=== PATIENT | female | born 2000 | race Two or more races ===

== ENCOUNTER 2024-10-30 13:36 | Emergency (ER) | payer OTHER ==
[~2024-10-30] VITALS: Ht 149.9 cm; Wt 39.5 kg
== END 2024-10-30 21:55 | disposition home or self-care (01) ==
LOC: ER 13:37
DX: O26.891 Other specified pregnancy related conditions, first trimester (principal); N89.8 Other specified noninflammatory disorders of vagina; Z3A.10 10 weeks gestation of pregnancy; Z88.0 Allergy status to penicillin

== ENCOUNTER 2024-11-07 13:24 | Emergency (ER) | payer OTHER ==
[~2024-11-07] VITALS: Ht 149.9 cm; Wt 39.5 kg
[2024-11-07 15:35] LABS: HEMATOCRIT 33.6 % (36.0-45.00); HEMOGLOBIN 11.7 g/dL (12.0-15.00); MEAN CELL VOLUME 86.8 fL (80.00-100.00); MEAN CORPUSCULAR HEMOGLOBIN 30.2 pg (27.00-32.0); MEAN CORPUSCULAR HGB CONC 34.8 g/dl (32.0-36.0); PLATELET COUNT 208 K/uL (150-450); RED BLOOD COUNT 3.87 M/uL (4.00-6.00); RED CELL DISTRIBUTION WIDTH 14.4 % (11.5-14.5)
== END 2024-11-07 18:15 ==
LOC: ER 13:25
PROVIDERS: General Practice
DX: O20.9 Hemorrhage in early pregnancy, unspecified (principal); O43.891 Other placental disorders, first trimester; Z3A.11 11 weeks gestation of pregnancy; Z88.0 Allergy status to penicillin

== ENCOUNTER 2025-02-04 20:36 | Outpatient (CLI) | payer OTHER ==
[2025-02-04 19:54] VITALS: BP 103/68
[2025-02-04] MEDS ORDERED: PRENATA CHEWAB1 EACH PO (20:40)
[2025-02-04] MEDS ORDERED: RINGERS SOLUTION,LACTATED 1,000 ML IV SCH (20:45)
[2025-02-04 21:05] LABS: BASO % 0.4 % (0.1-1.2); EOS # 0.21 (0.04-0.54); EOS % 2.1 % (0.7-7.0); LYMPH # 1.85 (1.18-3.74); LYMPH % 18.4 % (19.3-53.1); MEAN PLATELET VOLUME 9.70 fl (9.4-12.4); MONO # 1.02 (0.24-0.82); MONO % 10.1 % (4.7-12.5); NEUT # 6.84 (1.56-6.13); NEUT % 68.0 % (34.0-71.1); RED CELL DISTRIBUTION WIDTH 14.3 % (11.6-14.4); URINE APPEARANCE Turbid; URINE BILIRRUBIN Negative (NEGATIVE); URINE BLOOD Negative; URINE COLOR Yellow; URINE GLUCOSE Negative (NEGATIVE); URINE KETONE Negative (NEGATIVE); URINE LEUKOCYTE Negative; URINE NITRATE Negative; URINE PROTEIN Negative (NEGATIVE); URINE UROBILINOGEN 0.2 E.U./dl
[2025-02-04 21:09] LABS: URINE BACTERIA 68.3 uL (0.0-1933); URINE EPITHELIAL CELLS 18.2 uL (0.0-38.8); URINE RBC 32.6 uL (0.0-20.8); URINE WBC 4.2 uL (0.0-23.2)
[2025-02-04 21:18] LABS: URINE CAST 0.00 uL (0.0-1.40)
[2025-02-04 21:32] LABS: ALT/SGPT 27.0 U/L (12-78); AST/SGOT 22.0 U/L (15-37); BILIRUBIN TOTAL 0.3 mg/dL (0.3-1.2); BUN CREA RATIO 27.0 (7.0-25.0); CREATININE SERUM 0.3 mg/dL (0.55-1.02); GFR 275.68; GLOBULINA 3.7 G/DL (2.4-3.5); GLUCOSE FASTING 94.0 mg/dL (65-100); OSMOLALITY SERUM 276.0 MOSM/KG (275-295)
[2025-02-04 21:33] LABS: INR 0.94
[2025-02-04] MEDS ORDERED: CEFUROXIME500 MG (23:07)
[2025-02-04] MEDS ORDERED: ANCEF PO (23:08)
[2025-02-04 23:27] VITALS: BP 95/57; O2SAT 100
[2025-02-05 03:12] VITALS: BP 92/54; O2SAT 99
[2025-02-05 07:44] VITALS: BP 112/70; O2SAT 100
[2025-02-05 11:13] VITALS: BP 112/70
== END 2025-02-05 11:13 | disposition home or self-care (01) ==
LOC: OBS/DEL 20:36
PROVIDERS: Obstetrics & Gynecology; ATTEND Obstetrics & Gynecology
DX: O26.892 Other specified pregnancy related conditions, second trimester (principal); N93.0 Postcoital and contact bleeding; Z3A.24 24 weeks gestation of pregnancy

== ENCOUNTER 2025-02-25 22:54 | Emergency (ER) | payer OTHER ==
[~2025-02-25] VITALS: Ht 149.9 cm; Wt 46.7 kg
[~2025-02-25 22:54] MED LIST: ANCEF PO; CEFUROXIME500 MG; PRENATA CHEWAB1 EACH PO
[2025-02-26] MEDS ORDERED: GUAIFENESIN/DEXTROMETHORPHAN 100MG/10ML BLIST.PACK PO STA (01:57)
[2025-02-26 02:43] LABS: BASO % 0.4 % (0.1-1.2); EOS # 0.07 (0.04-0.54); EOS % 0.6 % (0.7-7.0); LYMPH # 0.89 (1.18-3.74); LYMPH % 7.2 % (19.3-53.1); MEAN PLATELET VOLUME 9.50 fl (9.4-12.4); MONO # 1.18 (0.24-0.82); MONO % 9.5 % (4.7-12.5); NEUT # 9.93 (1.56-6.13); NEUT % 79.8 % (34.0-71.1); RED CELL DISTRIBUTION WIDTH 13.3 % (11.6-14.4)
[2025-02-26 03:21] LABS: COVID-19 AG NEGATIVE (NEGATIVE)
== END 2025-02-26 04:01 | disposition home or self-care (01) ==
LOC: ER 22:54
DX: O98.812 Other maternal infectious and parasitic diseases complicating pregnancy, second trimester (principal); Z3A.26 26 weeks gestation of pregnancy; Z88.0 Allergy status to penicillin; Z91.040 Latex allergy status; J10.1 Influenza due to other identified influenza virus with other respiratory manifestations; Z20.822 Contact with and (suspected) exposure to COVID-19

== ENCOUNTER 2025-05-05 14:03 | Outpatient (CLI) | payer OTHER ==
[~2025-05-05] VITALS: Ht 149.9 cm; Wt 53.5 kg
[2025-05-05 13:07] VITALS: BP 102/71
[2025-05-05 14:00] VITALS: BP 102/71
[2025-05-05 15:31] VITALS: BP 105/67
[2025-05-05 19:40] VITALS: BP 107/63; O2SAT 98
[2025-05-05 23:29] VITALS: BP 108/75
[2025-05-06 00:06] VITALS: BP 108/75
== END 2025-05-05 23:29 | disposition home or self-care (01) ==
LOC: OBS/DEL 14:03
PROVIDERS: ATTEND Obstetrics & Gynecology
DX: O36.8130 Decreased fetal movements, third trimester, not applicable or unspecified (principal); O26.849 Uterine size-date discrepancy, unspecified trimester; Z3A.36 36 weeks gestation of pregnancy

== ENCOUNTER 2025-05-25 10:50 | Inpatient (IN) | payer OTHER ==
[2025-05-25] VITALS (7 sets, daily range): BP systolic 98–119; BP diastolic 56–79
[~2025-05-25] VITALS: Ht 149.9 cm; Wt 57.2 kg
[2025-05-25 12:15] LABS: BASO % 0.3 % (0.1-1.2); EOS # 0.11 (0.04-0.54); EOS % 1.2 % (0.7-7.0); LYMPH # 1.83 (1.18-3.74); LYMPH % 19.9 % (19.3-53.1); MEAN PLATELET VOLUME 10.10 fl (9.4-12.4); MONO # 1.15 (0.24-0.82); NEUT # 6.02 (1.56-6.13); NEUT % 65.6 % (34.0-71.1); RED CELL DISTRIBUTION WIDTH 13.6 % (11.6-14.4)
[2025-05-25] MEDS ORDERED: RINGERS SOLUTION,LACTATED 1,000 ML IV SCH (12:15)
[2025-05-25 12:19] LABS: MONO % 12.5 % (4.7-12.5)
[2025-05-25] MEDS ORDERED: OXYTOCIN 20 UNITS/500ML RL PIGGYBAG IV ONE (12:26)
[2025-05-25 12:29] LABS: URINE APPEARANCE Cloudy; URINE BILIRRUBIN Negative (NEGATIVE); URINE COLOR Yellow; URINE GLUCOSE Negative (NEGATIVE); URINE KETONE Negative (NEGATIVE); URINE LEUKOCYTE Small; URINE NITRATE Negative; URINE PROTEIN Negative (NEGATIVE); URINE UROBILINOGEN 0.2 E.U./dl
[2025-05-25] MEDS ORDERED: OXYTOCIN 20 UNITS/500ML RL PIGGYBAG IV SCH (12:30)
[2025-05-25 12:34] LABS: URINE BACTERIA 131.9 uL (0.0-1933); URINE EPITHELIAL CELLS 201.5 uL (0.0-38.8); URINE RBC 6.5 uL (0.0-20.8); URINE WBC 92.1 uL (0.0-23.2)
[2025-05-25 12:37] LABS: URINE CAST 0.00 uL (0.0-1.40)
[2025-05-25 12:38] LABS: URINE BLOOD TRACES
[2025-05-25 12:41] LABS: INR < 0.93
[2025-05-25] MEDS ORDERED: MORPHINE SULFATE 4 MG/ML CARTRIDGE IV STA (18:00)
[2025-05-25] MEDS ORDERED: OXYTOCIN 20 UNITS/1000ML RL PIGGYBAG IV ONE (19:10)
[2025-05-25] MEDS ORDERED: LIDOCAINE HCL 1% 10ML VIAL ONE (19:10)
[2025-05-25] MEDS ORDERED: CHLORHEXIDINE GLUCONATE 120 ML BOTTLE TOP ONE (19:10)
[2025-05-25] MEDS ORDERED: ERYTHROMYCIN BASE OPHT 1GM EACH TUBE OP ONE (19:10)
[2025-05-25] MEDS ORDERED: ACETAMINOPHEN 500 MG GEL..CAP PO PRN (23:45)
[2025-05-25] MEDS ORDERED: CHLORHEXIDINE GLUCONATE 120 ML BOTTLE TP ONE (23:45)
[2025-05-25] MEDS ORDERED: OXYTOCIN 1,000 ML IV SCH (23:45)
[2025-05-26 01:30] VITALS: BP 107/68
[2025-05-26 03:37] LABS: BASO % 0.2 % (0.1-1.2); EOS # 0.01 (0.04-0.54); EOS % 0.1 % (0.7-7.0); LYMPH # 1.30 (1.18-3.74); LYMPH % 7.5 % (19.3-53.1); MEAN PLATELET VOLUME 10.00 fl (9.4-12.4); MONO # 1.43 (0.24-0.82); MONO % 8.2 % (4.7-12.5); NEUT # 14.51 (1.56-6.13); NEUT % 83.3 % (34.0-71.1); RED CELL DISTRIBUTION WIDTH 13.4 % (11.6-14.4)
[2025-05-26 08:00] VITALS: BP 112/77
[2025-05-26] MEDS ORDERED: PNV,CALCIUM 72/IRON/FOLIC ACID 1 TAB TABLET PO SCH (09:00)
[2025-05-26 16:01] VITALS: BP 108/72
[2025-05-27] VITALS: BP 107/68
[2025-05-27 09:34] VITALS: BP 99/65
== END 2025-05-27 18:09 | disposition home or self-care (01) | DRG 807 ==
LOC: LDR 10:50 → OB/GYN 10:50 → LDR 14:17 → OB/GYN 23:06
PROVIDERS: ADMIT Obstetrics & Gynecology; ATTEND Obstetrics & Gynecology
PROC: 10E0XZZ Delivery of Products of Conception, External Approach (ICD-10-PCS; principal; 2025-05-25)
PROC: 0KQM0ZZ Repair Perineum Muscle, Open Approach (ICD-10-PCS; 2025-05-25)
PROC: 4A1HXCZ Monitoring of Products of Conception, Cardiac Rate, External Approach (ICD-10-PCS; 2025-05-25)
DX: O70.1 Second degree perineal laceration during delivery (principal); Z37.0 Single live birth; Z3A.39 39 weeks gestation of pregnancy